=== PATIENT | female | born 1980 | race Caucasian/White ===

== ENCOUNTER 2019-02-16 17:19 | Emergency (ER) | payer MEDICAID, OTHER ==
[~2019-02-16] VITALS: Ht 165.1 cm; Wt 74.8 kg
[2019-02-16 17:32] VITALS: BP 114/75
--- NOTE | 2019-02-16 17:32 | NUR ---
ED Nurse Note: PT WALKED INTO ED DUE TO LLQ ABD PAIN THAT RADIATES TO HER GROIN X 2 DAYS. PT REPORTS NAUSEA BUT WITH NO VOMITING. AAO X4, AMBULATORY AND WITH NON LABORED BREATHING.
[2019-02-16] MEDS ORDERED: Morphine Sulfate 2mg/ml Inj(IV/IM USE ONLY) IVP ONE (18:00)
[2019-02-16] MEDS ORDERED: Ketorolac 30mg Inj IV ONE (18:00)
--- NOTE | 2019-02-16 18:04 | Emergency Room Report ---
History of Present Illness General Chief Complaint: Abdominal Pain Source: Patient Present Illness HPI Patient is a 38-year-old female who presented after increased left-sided pelvic pain. Patient had prior history of ovarian cyst. She reports having increased pain to the left side worse with supine position. She had onset of symptoms 2 days ago. She reports having her last period in middle of January. She reports having increased nausea without any vomiting. Patient's pain radiated to the groin area. She denies any new vaginal discharge. She reports of increased dysuria. She denies any hematuria. No shortness of breath. She denies abnormal Paps in the past.She reports having increased constipation. Allergies: Coded Allergies: No Known Allergies (Unverified , 02/16/19) Patient History Past Medical History: see triage record Last Menstrual Period: 02/02/19 Reviewed Nursing Documentation: PMH: Agreed; PSxH: Agreed Nursing Documentation-PMH Past Medical History: No Stated History Review of Systems All Other Systems: negative except mentioned in HPI Physical Exam Vital Signs Date Time Temp Pulse Resp B/P (MAP) Pulse Ox O2 Delivery O2 Flow Rate FiO2 02/16/19 17:22 98.4 85 18 114/75 (88) 97 Room Air Sp02 EP Interpretation: reviewed, normal General Appearance: normal inspection, well appearing, no apparent distress, alert, GCS 15, non-toxic Head: atraumatic ENT: normal ENT inspection, hearing grossly normal, normal voice Neck: normal inspection, full range of motion, supple, no bony tend Respiratory: normal inspection, lungs clear, normal breath sounds, no respiratory distress, no retraction, no wheezing Cardiovascular #1: regular rate, rhythm, no edema Gastrointestinal: normal inspection, normal bowel sounds, non tender, soft, no guarding, no hernia Musculoskeletal: normal inspection, back normal, normal range of motion Neurologic: normal inspection, alert, oriented x3, responsive, car repairer III-XII nml as tested, motor strength/tone normal, speech normal Psychiatric: normal inspection, judgement/insight normal, mood/affect normal Skin: no rash Medical Decision Making Diagnostic Impression: Primary Impression: Nonspecific abdominal pain Additional Impression: Ovarian cyst ER Course Patient is a 38-year-old female presents after increased left-sided abdominal pain. Differential diagnosis include was not limited to ovarian cyst rupture, torsion, stone, fecal impaction among others. Because of complexity of patient' s case laboratory tests and imaging studies were ordered. Patient's exam and history is consistent with possible obstructing stone. Patient was given IV fluids as well as nausea medications.Patient was noted to have cyst to the right side which is not consistent with the patient's location of pain. Patient was advised FACTORY MACHINE COMPUTER OPERATOR follow-up. There does appear to be good ovarian blood flow. Patient given prescription for medications for symptomatic treatment she is advised to return if worse. Labs Test 02/16/19 18:10 White Blood Count 11.0 K/UL (4.8-10.8) Red Blood Count 5.23 M/UL (4.20-5.40) Hemoglobin 14.3 G/DL (12.0-16.0) Hematocrit 42.3 % (37.0-47.0) Mean Corpuscular Volume 81 FL (80-99) Mean Corpuscular Hemoglobin 27.4 PG (27.0-31.0) Mean Corpuscular Hemoglobin Concent 33.8 G/DL (32.0-36.0) Red Cell Distribution Width 10.5 % (11.6-14.8) Platelet Count 271 K/UL (150-450) Mean Platelet Volume 7.3 FL (6.5-10.1) Neutrophils (%) (Auto) 53.9 % (45.0-75.0) Lymphocytes (%) (Auto) 37.7 % (20.0-45.0) Monocytes (%) (Auto) 3.9 % (1.0-10.0) Eosinophils (%) (Auto) 3.4 % (0.0-3.0) Basophils (%) (Auto) 1.1 % (0.0-2.0) Prothrombin Time 9.8 SEC (9.30-11.50) Prothromb Time International Ratio 0.9 (0.9-1.1) Activated Partial Thromboplast Time 27 SEC (23-33) Urine Color Pale yellow Urine Appearance Clear Urine pH 5 (4.5-8.0) Urine Specific [place] 1.010 (1.005-1.035) Urine Protein Negative (NEGATIVE) Urine Glucose (UA) Negative (NEGATIVE) Urine Ketones 2+ (NEGATIVE) Urine Blood Negative (NEGATIVE) Urine Nitrite Negative (NEGATIVE) Urine Bilirubin Negative (NEGATIVE) Urine Urobilinogen Normal MG/DL (0.0-1.0) Urine Leukocyte Esterase Negative (NEGATIVE) Urine HCG, Qualitative Negative (NEGATIVE) Sodium Level 141 MMOL/L (136-145) Potassium Level 3.7 MMOL/L (3.5-5.1) Chloride Level 104 MMOL/L (98-107) Carbon Dioxide Level 26 MMOL/L (21-32) Anion Gap 11 mmol/L (5-15) Blood Urea Nitrogen 8 mg/dL (7-18) Creatinine 0.8 MG/DL (0.55-1.30) Estimat Glomerular Filtration Rate > 60 mL/min (>60) Glucose Level 78 MG/DL (74-106) Calcium Level 8.9 MG/DL (8.5-10.1) Last Vital Signs Date Time Temp Pulse Resp B/P (MAP) Pulse Ox O2 Delivery O2 Flow Rate FiO2 02/16/19 17:32 79 15 Room Air 02/16/19 17:32 98.4 114/75 97 Status: improved Disposition: HOME, SELF-CARE Condition: Stable Scripts Lactulose (LACTULOSE*) 20 Gm/30 Ml Solution 15 ML ORAL PRN, #100 ML 0 Refills Prov: Chuck Ramos MD 02/16/19 Ibuprofen* (MOTRIN*) 600 Mg Tablet 600 MG ORAL Q8H PRN for For Pain, #30 TAB 0 Refills Prov: Chuck Ramos MD 02/16/19 Docusate Sodium* (COLACE*) 100 Mg Capsule 100 MG ORAL TWICE A DAY, #20 CAP Prov: Chuck Ramos MD 02/16/19 Chuck Ramos MD Feb 16, 2019 18:03
--- NOTE | 2019-02-16 18:17 | NUR ---
ED Nurse Note: PT TAKEN TO US VIA WHEELCHAIR AND STABLE.
[2019-02-16 18:33] LABS: BASOPHILS % (AUTO) 1.1 % (0.0-2.0); EOSINOPHILS % (AUTO) 3.4 % (0.0-3.0); HEMATOCRIT 42.3 % (37.0-47.0); HEMOGLOBIN 14.3 G/DL (12.0-16.0); LYMPHOCYTES % (AUTO) 37.7 % (20.0-45.0); MEAN CORPUSCULAR VOLUME 81 FL (80-99); MONOCYTES % (AUTO) 3.9 % (1.0-10.0); NEUTROPHILS % (AUTO) 53.9 % (45.0-75.0); PLATELET COUNT 271 K/UL (150-450); RED BLOOD COUNT 5.23 M/UL (4.20-5.40); RED CELL DISTRIBUTION WIDTH 10.5 % (11.6-14.8)
[2019-02-16 18:36] LABS: APPEARANCE,URINE CLEAR; BILIRUBIN, URINE NEGATIVE (NEGATIVE); COLOR,URINE PALE YELLOW; GLUCOSE, URINE (UA) NEGATIVE (NEGATIVE); KETONES,URINE 2+ (NEGATIVE); LEUKOCYTE ESTERASE ,URINE NEGATIVE (NEGATIVE); NITRITE,URINE NEGATIVE (NEGATIVE); PH,URINE 5 (4.5-8.0); PROTEIN,URINE NEGATIVE (NEGATIVE); UROBILINOGEN,URINE NORMAL MG/DL (0.0-1.0)
[2019-02-16 18:41] LABS: INR 0.9 (0.9-1.1)
[2019-02-16 18:49] LABS: ANION GAP 11 mmol/L (5-15); BLOOD UREA NITROGEN 8 mg/dL (7-18); CALCIUM 8.9 MG/DL (8.5-10.1); CARBON DIOXIDE 26 MMOL/L (21-32); CHLORIDE 104 MMOL/L (98-107); CREATININE 0.8 MG/DL (0.55-1.30); POTASSIUM 3.7 MMOL/L (3.5-5.1); SODIUM 141 MMOL/L (136-145)
[2019-02-16 18:53] LABS: ALANINE AMINOTRANSFERASE 30 U/L (12-78); ALBUMIN 3.8 G/DL (3.4-5.0); ALKALINE PHOSPHATASE 62 U/L (46-116); ASPARTATE AMINO TRANSFERASE 21 U/L (15-37); BILIRUBIN,TOTAL 0.5 MG/DL (0.2-1.0)
--- NOTE | 2019-02-16 19:04 | NUR ---
HAND-OFF: Report given to KIYA LUCAS.
--- NOTE | 2019-02-16 19:05 | NUR ---
ED Nurse Note: Recieved report to resume care, pt is currently in imaging department having ultrasound, will resume care when pt returns.
--- NOTE | 2019-02-16 19:51 | Diagnostic Imaging Report ---
Indication: Left lower quadrant abdominal pain radiating to her groin for 2 days, nausea Technique: Spiral acquisitions obtained through the abdomen and pelvis. No oral contrast utilized, per emergency room physician request No IV contrast utilized, per referring physician request.. Multiplanar reconstructions were generated. Total dose length product 852 mGycm. CTDIvol(s) 50 mGy. Dose reduction achieved using automated exposure control Comparison: None Findings: Normal appendix. No evidence of colonic diverticulosis or diverticulitis. No small bowel distention. No free or loculated intraperitoneal gas or fluid is evident. The distal esophagus, stomach, duodenum are unremarkable. Lack of IV contrast limits assessment of the solid organs. The liver, gallbladder, bile ducts, pancreas, spleen, adrenals, kidneys are all unremarkable. There is a 3.1 cm unilocular cyst in the right ovary. The uterus and left ovary appear unremarkable. The included lung bases are clear. The bones are unremarkable. Impression: No acute or significant abnormality. Incidental finding right ovarian dominant follicle This agrees with the preliminary interpretation provided overnight by [facility] teleradiology service. The CT scanner at [facility] is accredited by the [employer] and the scans are performed using protocols designed to limit radiation exposure to as low as reasonably achievable to attain images of sufficient resolution adequate for diagnostic evaluation.
[2019-02-16] MEDS ORDERED: COLACE100 MG ORAL (19:56)
[2019-02-16] MEDS ORDERED: IBUPROFEN600 MG ORAL (20:02)
[2019-02-16] MEDS ORDERED: LACTULOSE20 GM/301 ORAL (20:02)
[2019-02-16 20:15] VITALS: BP 121/79
--- NOTE | 2019-02-16 20:20 | NUR ---
ER DISCHARGE NOTE: Patient is cleared to be discharged per ERMD, pt is aox4, on room air, with stable vital signs. pt was given dc and prescription instructions, pt was able to verbalize understanding, pt id band and iv site removed without complications. pt is able to ambulate with steady gait. pt took all belongings.
[2019-02-16 20:30] VITALS: BP 121/79
--- NOTE | 2019-02-17 12:06 | Diagnostic Imaging Report ---
Indication: Pelvic pain, negative test Technique: Transabdominal and transvaginal images of the pelvis. Doppler interrogation of the ovaries Comparison: none Findings: Uterus measures 6.9 cm length by 3.3 cm AP. The endometrium measures 5 mm thick. No myometrial abnormality. There are some cervical nabothian cysts. The right ovary it measures 4.5 cm in length, demonstrates a 4.5 cm cyst. The left ovary measures 3.8 cm in length. Both ovaries demonstrate normal flow on Doppler interrogation. Impression: No acute or significant abnormality 4.5 cm presumed benign right ovarian cyst Incidental findings of cervical nabothian cysts This agrees with the preliminary interpretation provided overnight by Dr. Chaves
== END 2019-02-16 20:30 | disposition home or self-care (01) ==
LOC: EDBD 18:03 → EMR 18:03
DX: R10.9 Unspecified abdominal pain (principal); N83.201 Unspecified ovarian cyst, right side
CPT/HCPCS: 36415; 74176; 76830; 76856; 80053; 81003; 81025; 83690; 85025; 85610; 85730; 96374; 96375; J1885; J2270; Z7502; 99284

== ENCOUNTER 2019-12-28 18:09 | Emergency (ER) | payer MEDICAID, OTHER ==
[~2019-12-28] VITALS: Ht 162.6 cm; Wt 74.8 kg
[~2019-12-28 18:09] MED LIST: COLACE100 MG ORAL; IBUPROFEN600 MG ORAL; LACTULOSE20 GM/301 ORAL
[2019-12-28 18:26] VITALS: BP 108/74
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
[2019-12-28] MEDS ORDERED: CEPHALEXIN500 MG ORAL (18:55)
[2019-12-28] MEDS ORDERED: NORCO 5-325 TA1 EAC1 ORAL (18:55)
[2019-12-28 19:01] VITALS: BP 100/75
== END 2019-12-28 19:01 | disposition home or self-care (01) ==
LOC: EMR 18:51
DX: T22.211A Burn of second degree of right forearm, initial encounter (principal); L03.113 Cellulitis of right upper limb; T31.0 Burns involving less than 10% of body surface; X58.XXXA Exposure to other specified factors, initial encounter; Y92.9 Unspecified place or not applicable
CPT/HCPCS: 99282